=== PATIENT | female | born 1995 | race Caucasian/White ===

== ENCOUNTER 2019-09-08 07:47 | Outpatient (CLI) | payer BC, OTHER ==
[2019-09-08 18:02] LABS: BHCG - Serum Negative (NEGATIVE); Pregs Control Background? CLEAR/WHITE (CLR/WHITE); Pregs Control Bar Appear? YES (CONTROL BAR)
[2019-09-08 18:03] LABS: #Eosinphils 0.1 thou/uL (0.0-0.7); #Lymphocytes 3.1 thou/uL (1.20-3.40); #Monocytes 0.6 thou/uL (0.11-0.59); #Neutrophils 6.7 thou/uL (1.40-6.50); %Basophils 0.4 % (0.0-1.0); %Eosinophils 1.4 % (0.0-10.0); %Lymphocytes 29.3 % (21.0-51.0); %Monocytes 5.4 % (0.0-10.0); %Neutrophils 63.5 % (42.0-75.0); Hemoglobin 13.8 g/dL (12.0-16.0); Mean Corpuscular HGB CONC 32.2 g/dL (32.0-36.0); Mean Corpuscular Hemoglobin 31.8 pg (27.0-31.0); Mean Corpuscular Volume 98.8 fL (78.0-98.0); Mean Platelet Volume 9.3 fL (7.4-10.4); Platelet Count 275 thou/uL (130-400); Red Blood Cell (RBC) Count 4.33 mill/uL (4.20-5.40); White Blood Cell (WBC) Count 10.5 thou/uL (4.8-10.8)
[2019-09-09 12:21] LABS: SARS-CoV-2 MS2 Positive; SARS-CoV-2 N Gene Negative; SARS-CoV-2 S Gene Negative; SARS-CoV-2 orf1ab Negative
== END 2019-09-08 07:48 | disposition home or self-care (01) ==
LOC: LABBT 07:47
PROVIDERS: ATTEND Orthopaedic Surgery Hand Surgery
DX: Z01.812 Encounter for preprocedural laboratory examination (principal); Z11.59 Encounter for screening for other viral diseases; M67.442 Ganglion, left hand
CPT/HCPCS: 84703; 85025; 87635; U0003

== ENCOUNTER 2019-09-08 12:14 | Outpatient (CLI) | payer BC ==
[2019-09-08] MEDS ORDERED: Magnevist 469MG/ML 20 ML VIAL ONE (13:52)
--- NOTE | 2019-09-08 15:08 | MRI ---
MRI LEFT RING FINGER PERFORMED WITH AND WITHOUT CONTRAST ENHANCEMENT: Date: 09/08/2019 HISTORY: Patient complaining of a nodule on the palm side of hand. This area is marked with a radiopaque marke r. FINDINGS: The marrow signal change within the metacarpals and phalanges appear normal. There is fluid within the tendon sheath of the common flexor tendon. This begins at approximately mid fourth metacarpal level and extends distally. The flexor tendon itself is not enlarged. I do not see any adjacent inflammatory change. No other findings. IMPRESSION: Tenosynovitis changes of the flexor tendon sheath of the ring finger. POS: SHANON
== END 2019-09-08 12:15 | disposition home or self-care (01) ==
LOC: BICMRI 12:14
PROVIDERS: ATTEND Orthopaedic Surgery Hand Surgery
DX: M67.441 Ganglion, right hand (principal); M65.9 Synovitis and tenosynovitis, unspecified